=== PATIENT | male | born 1950 | race Hispanic/Latino ===

== ENCOUNTER 2018-01-09 16:36 | Emergency (ER) | payer MEDICARE, OTHER ==
[~2018-01-09] VITALS: Ht 165.1 cm; Wt 68.0 kg
[2018-01-09] MEDS ORDERED: MELOXICAM7.5 MG PO (17:09)
[2018-01-09] MEDS ORDERED: AVEENO INTENSE207 GM TOP (17:12)
[2018-01-09] MEDS ORDERED: OATMEAL BATH TOP (17:12)
== END 2018-01-09 17:15 | disposition home or self-care (01) ==
LOC: FSED 16:36
DX: L24.1 Irritant contact dermatitis due to oils and greases (principal); E78.5 Hyperlipidemia, unspecified
CPT/HCPCS: 99283

== ENCOUNTER 2022-09-07 18:46 | Emergency (ER) | payer MEDICARE, OTHER ==
[~2022-09-07] VITALS: Ht 165.1 cm; Wt 66.2 kg
[~2022-09-07 18:46] MED LIST: AVEENO INTENSE207 GM TOP; MELOXICAM7.5 MG PO; OATMEAL BATH TOP
[2022-09-07] MEDS ORDERED: PREDNISONE20 MG PO (19:49)
[2022-09-07] MEDS ORDERED: CETIRIZINE HCL10 MG PO (19:55)
[2022-09-07] MEDS ORDERED: FAMOTIDINE 20 MG TAB PO ONE (20:00)
[2022-09-07] MEDS ORDERED: PREDNISONE 20 MG TAB PO ONE (20:00)
[2022-09-07 20:15] VITALS: BP 166/79
== END 2022-09-07 20:10 | disposition home or self-care (01) ==
LOC: FSED 19:01
DX: L42 Pityriasis rosea (principal); E78.5 Hyperlipidemia, unspecified; M10.9 Gout, unspecified; F43.10 Post-traumatic stress disorder, unspecified; F32.A Depression, unspecified
CPT/HCPCS: 80053; 85025; 99282; J7512

== ENCOUNTER 2023-11-04 08:09 | Emergency (ER) | payer MEDICARE, OTHER ==
[~2023-11-04] VITALS: Ht 165.1 cm; Wt 65.5 kg
[~2023-11-04 08:09] MED LIST changes: +CETIRIZINE HCL10 MG PO; +PREDNISONE20 MG PO
[2023-11-04] MEDS ORDERED: MAGNESIUM CITR296 ML PO (09:19)
[2023-11-04] MEDS ORDERED: COLACE100 M1 PO (09:19)
[2023-11-04 10:04] VITALS: BP 144/87; PULSE 71; RESP 18; TEMP 98.2; O2SAT 98
== END 2023-11-04 10:05 | disposition home or self-care (01) ==
LOC: FSED 08:14
DX: K59.01 Slow transit constipation (principal); R10.11 Right upper quadrant pain; E78.5 Hyperlipidemia, unspecified; M10.9 Gout, unspecified; F17.200 Nicotine dependence, unspecified, uncomplicated
CPT/HCPCS: 74176; 80053; 81003; 85025; 99282

== ENCOUNTER 2024-12-15 09:59 | Emergency (ER) | payer MEDICARE, OTHER ==
[~2024-12-15] VITALS: Ht 165.1 cm; Wt 65.3 kg
[~2024-12-15 09:59] MED LIST changes: +COLACE100 M1 PO; +MAGNESIUM CITR296 ML PO
[2024-12-15 10:02] VITALS: PULSE 71; RESP 15; TEMP 97.4; O2SAT 96
[2024-12-15] MEDS: ACETAMINOPHEN 325 MG TAB PO ONE (10:55)
[2024-12-15] MEDS ORDERED: MEDROL4 M2 PO (11:19)
[2024-12-15] MEDS ORDERED: COLCRYS0.6 MG PO (11:20)
== END 2024-12-15 11:35 | disposition home or self-care (01) ==
LOC: FSED 10:03
DX: M25.571 Pain in right ankle and joints of right foot (principal); M10.9 Gout, unspecified; Y93.01 Activity, walking, marching and hiking; Y92.59 Other trade areas as the place of occurrence of the external cause; E78.5 Hyperlipidemia, unspecified
CPT/HCPCS: 99284

== ENCOUNTER 2025-01-28 07:36 | Emergency (ER) | payer MEDICARE, OTHER ==
[~2025-01-28] VITALS: Ht 165.1 cm; Wt 67.3 kg
[~2025-01-28 07:36] MED LIST changes: +COLCRYS0.6 MG PO; +MEDROL4 M2 PO
[2025-01-28 07:40] VITALS: PULSE 65; RESP 20; TEMP 97.5
[2025-01-28] MEDS: IBUPROFEN 600 MG TAB PO STA (08:17)
[2025-01-28 09:38] VITALS: BP 141/76; PULSE 64; RESP 17; TEMP 97.4; O2SAT 98
== END 2025-01-28 09:38 | disposition home or self-care (01) ==
LOC: FSED 07:44
DX: R07.89 Other chest pain (principal); S22.41XA Multiple fractures of ribs, right side, initial encounter for closed fracture; S20.211A Contusion of right front wall of thorax, initial encounter; W01.0XXA Fall on same level from slipping, tripping and stumbling without subsequent striking against object, initial encounter; Y92.89 Other specified places as the place of occurrence of the external cause; I10 Essential (primary) hypertension; J44.9 Chronic obstructive pulmonary disease, unspecified; E78.5 Hyperlipidemia, unspecified; M10.9 Gout, unspecified; M54.9 Dorsalgia, unspecified; G89.29 Other chronic pain; F43.10 Post-traumatic stress disorder, unspecified
CPT/HCPCS: 71101; 81003; 99284